=== PATIENT | male | born 1985 | race African-American/Black ===

== ENCOUNTER 2016-05-15 01:12 | Emergency (ER) | payer SELFPAY ==
[2016-05-15 01:21] VITALS: RESP 18
--- NOTE | 2016-05-15 02:04 | ED ---
Male Urogenital HPI - General Chief complaint: Urogenital Stated complaint: hernia Time Seen by Provider: 05/15/16 01:41 Source: patient, RN notes reviewed Mode of arrival: ambulatory Limitations: no limitations - History of Present Illness Initial comments: Patient is a 31-year-old male presenting to the with a chief complaint of right testicular pain for the past 3-4 weeks. He states that he lifts heavy things during his job. states he is concerned for possible hernia. He denies any dysuria or hematuria or urethral discharge. He denies any sexually transmitted infections. Patient denies any recent trauma that could cause injury. - Related Data Home Medications Medication Instructions Recorded Confirmed Albuterol Inhaler [Ventolin Hfa 1 - 2 puff INHALATION Q6HR PRN 05/15/16 05/15/16 Inhaler] Previous Rx's Medication Instructions Recorded Ciprofloxacin HCl [Cipro] 500 mg PO Q12HR #10 tablet 05/15/16 Allergies Allergy/AdvReac Type Severity Reaction Status Date / Time No Known Allergies Allergy Verified 05/15/16 01:21 Review of Systems ROS Statement: Those systems with pertinent positive or pertinent negative responses have been documented in the HPI. ROS Other: All systems not noted in ROS Statement are negative. Past Medical History Past Medical History: Asthma History of Any Multi-Drug Resistant Organisms: None Reported Past Surgical History: No Surgical Hx Reported Past Psychological History: No Psychological Hx Reported Smoking Status: Current every day smoker Past Alcohol Use History: Occasional Past Drug Use History: None Reported, Marijuana General Exam - General Exam Comments Initial Comments: Patient is a 31-year-old. Patient does not appear to be in any acute distress. Limitations: no limitations General appearance: alert, in no apparent distress Head exam: Present: atraumatic, normocephalic, normal inspection Eye exam: Present: normal appearance, PERRL, EOMI. Absent: scleral icterus, conjunctival injection, periorbital swelling ENT exam: Present: normal exam, mucous membranes moist Neck exam: Present: normal inspection. Absent: tenderness, meningismus, lymphadenopathy Respiratory exam: Present: normal lung sounds bilaterally. Absent: respiratory distress, wheezes, rales, rhonchi, stridor Cardiovascular Exam: Present: regular rate, normal rhythm, normal heart sounds. Absent: systolic murmur, diastolic murmur, rubs, gallop, clicks GI/Abdominal exam: Present: soft, normal bowel sounds. Absent: distended, tenderness, guarding, rebound, rigid exam: Present: normal inspection, testicular tenderness (Patient has right- sided testicular tenderness.), circumcision. Absent: urethral discharge, scrotal swelling, vertical testicular lie Extremities exam: Present: normal inspection, full ROM, normal capillary refill. Absent: tenderness, pedal edema, joint swelling, calf tenderness Back exam: Present: normal inspection Neurological exam: Present: alert, oriented X3, CN II-XII intact Psychiatric exam: Present: normal affect, normal mood Skin exam: Present: warm, dry, intact, normal color. Absent: rash Course Vital Signs 05/15/16 05/15/16 01:17 03:57 Temperature 97.3 F L 97 F L Pulse Rate 76 89 Respiratory 18 18 Rate Blood Pressure 133/86 133/76 O2 Sat by Pulse 100 97 Oximetry Medical Decision Making - Medical Decision Making Patient is a 31 year old male with 3-4 weeks of testicular pain. Patient denies possibility or risk of STI, and partner denies STI. Patient reports he has been faithfull with this partner for many years. Patient will be discharged with Cipro Rx for epididymitis. Again patient denies trauma over the area, however UA was negative for any infection. Patient advised to follwo up with PCP and return parameters discussed. - Lab Data Lab Results 05/15/16 Range/Units 02:58 Urine Color Yellow Urine Appearance Clear (Clear) Urine pH 6.0 (5.0-8.0) Ur Specific [place] 1.020 (1.001-1.035) Urine Protein Negative (Negative) Urine Glucose (UA) Negative (Negative) Urine Ketones Negative (Negative) Urine Blood Negative (Negative) Urine Nitrate Negative (Negative) Urine Bilirubin Negative (Negative) Urine Urobilinogen <2.0 (<2.0) mg/dL Ur Leukocyte Esterase Negative (Negative) - Radiology Data Radiology results: report reviewed scrotal US shows increased vascularity to right epididymis correlating to epididymitis. Disposition Clinical Impression: Epididymitis Disposition: HOME SELF-CARE Condition: Good Instructions: Epididymitis (ED) Additional Instructions: Patient instructed to remain hydrated. Use scrotal elevation. Motrin or Tylenol for pain. Follow-up with a primary care provider. Prescriptions: Ciprofloxacin HCl [Cipro] 500 mg PO Q12HR #10 tablet Referrals: Eloise Canales MD [REFERRING] - 1-2 days Time of Disposition: 03:25
--- NOTE | 2016-05-15 02:39 | US ---
EXAMINATION TYPE: US scrotum with doppler. Grayscale and color Doppler Duplex imaging performed of t he scrotum. DATE OF EXAM: 05/15/2016 2:14 AM COMPARISON: none CLINICAL HISTORY: Rt pain x 1 month, pt does a lot of lifting objects. EXAM MEASUREMENTS: TESTICLES: Right Testicle: 3.7 x 3.3 x 2.1 cm Left Testicle: 4.4 x 3.5 x 2.4 cm EPIDIDYMIS HEAD: Right Epididymis: 1.0 x 1.1 x 0.8 cm Left Epididymis: 1.0 x 1.0 x0.8 cm Doppler performed to assess for testicular vascularity; good bilateral color flow and waveforms are s een. There is no evidence of testicular torsion. Presence of hydroceles: no Presence of varicoceles: left TECHNOLOGIST IMPRESSION: Area of lump scanned, vascular tubular lesion seen inf/med to teste= 1.8 x 2.9 x 1.0 cm IMPRESSION: No evidence of testicular torsion or mass. No free fluid. There is a prominent right epid idymis with vascularity that is suggestive of epididymitis.
[2016-05-15 03:13] LABS: Appearance,Urine Clear (Clear); Bilirubin,Urine Negative (Negative); Glucose,Urine (UA) Negative (Negative); Ketones,Urine Negative (Negative); Leukocyte Esterase,Urine Negative (Negative); Nitrite,Urine Negative (Negative); Protein,Urine Negative (Negative); UA Billing (MACRO vs. MICRO) CHEM; Urobilinogen,Urine <2.0 mg/dL (<2.0)
[2016-05-15 03:57] VITALS: BP 133/76; PULSE 89; TEMP 97
== END 2016-05-15 03:57 | disposition home or self-care (01) ==
LOC: EC 01:12
DX: N45.1 Epididymitis (principal); F17.200 Nicotine dependence, unspecified, uncomplicated
CPT/HCPCS: 76870; 81003; 93975; 99284

== ENCOUNTER 2017-04-23 05:26 | Emergency (ER) | payer SELFPAY ==
[2017-04-23 05:36] VITALS: RESP 18
[2017-04-23] MEDS ORDERED: IBUPROFEN 400 MG TAB PO STA (05:45)
--- NOTE | 2017-04-23 06:26 | ED ---
Lower Extremity Injury HPI - General Chief Complaint: Extremity Injury, Lower Stated Complaint: toe injury Time Seen by Provider: 04/23/17 05:38 Source: patient Mode of arrival: ambulatory Limitations: no limitations - History of Present Illness Initial Comments: this patient is a 30-year-old man who presents to have his foot evaluated. The patient states that a coworker fell and landed on his foot. This occurred nearly 24 hours ago. Tonight he was trying to work and had aching pains of the toe, which were made worse when he was standing or when he was trying to walk on his foot. The patient indicates the right first toe, lateral aspect of the toe at the IP joint. MD Complaint: foot injury Onset/Timin -: hour(s) Injury: Toes: Right Type of Injury: blunt Place: work Severity: moderate Improves With: nothing Worsens With: movement, palpation Context: direct blow - Related Data Home Medications Medication Instructions Recorded Confirmed Albuterol Inhaler [Ventolin Hfa 1 - 2 puff INHALATION Q6HR PRN 05/15/16 05/15/16 Inhaler] Previous Rx's Medication Instructions Recorded Ciprofloxacin HCl [Cipro] 500 mg PO Q12HR #10 tablet 05/15/16 Ibuprofen [Motrin] 600 mg PO Q8HR PRN #20 tab 04/23/17 Allergies Allergy/AdvReac Type Severity Reaction Status Date / Time shellfish derived Allergy Anaphylaxis Verified 04/23/17 05:37 Review of Systems ROS Statement: Those systems with pertinent positive or pertinent negative responses have been documented in the HPI. ROS Other: All systems not noted in ROS Statement are negative. Constitutional: Denies: fever, chills Musculoskeletal: Reports: as per HPI, arthralgia Skin: Denies: rash Neurological: Denies: weakness, numbness Past Medical History Past Medical History: Asthma History of Any Multi-Drug Resistant Organisms: None Reported Past Surgical History: No Surgical Hx Reported Past Psychological History: No Psychological Hx Reported Smoking Status: Heavy tobacco smoker Past Alcohol Use History: Daily Past Drug Use History: None Reported, Marijuana General Exam Limitations: no limitations General appearance: alert, in no apparent distress Right Ankle exam: Present: normal inspection, full ROM. Absent: tenderness, swelling , abrasion, laceration, ecchymosis, deformity, crepitus, dislocation Foot/Toe exam: Present: tenderness (medial aspect of the right first toe at the IP joint), ecchymosis. Absent: deformity, crepitus, dislocation, erythema, puncture wound, foreign body, nail avulsion, subungual hematoma Neurovascular tendon exam: Present: no vascular compromise. Absent: motor deficit, sensory deficit Skin exam: Present: warm, dry, intact, normal color. Absent: rash Course Vital Signs 04/23/17 04/23/17 05:34 06:39 Temperature 97.0 F L Pulse Rate 93 86 Respiratory 18 18 Rate Blood Pressure 141/90 150/82 O2 Sat by Pulse 96 99 Oximetry Disposition Clinical Impression: Injury of toe on right foot Disposition: HOME SELF-CARE Condition: Good Instructions: Foot Contusion (ED) Prescriptions: Ibuprofen [Motrin] 600 mg PO Q8HR PRN #20 tab PRN Reason: Pain Referrals: Eolise Canales MD [Primary Care Provider] - 1-2 days
[2017-04-23 06:40] VITALS: BP 150/82; PULSE 86
--- NOTE | 2017-04-23 06:54 | XR ---
EXAM: XR Right Foot Complete, 3 or More Views CLINICAL HISTORY: Reason: Pain TECHNIQUE: Frontal, lateral and oblique views of the right foot. COMPARISON: No relevant prior studies available. FINDINGS: Bones/joints: Unremarkable. No acute fracture. No dislocation. Mild hallux valgus deformity Soft tissues: Unremarkable. No radiopaque foreign body. IMPRESSION: No acute bony abnormality.
[2017-04-23 07:07] VITALS: TEMP 96.8
== END 2017-04-23 07:06 | disposition home or self-care (01) ==
LOC: EC 05:26
DX: S99.921A Unspecified injury of right foot, initial encounter (principal); F17.200 Nicotine dependence, unspecified, uncomplicated; Z91.013 Allergy to seafood; W51.XXXA Accidental striking against or bumped into by another person, initial encounter
CPT/HCPCS: 99283

== ENCOUNTER 2017-09-15 06:06 | Emergency (ER) | payer OTHER ==
[2017-09-15 06:19] VITALS: RESP 18
[2017-09-15] MEDS ORDERED: MORPHINE SULFATE 4 MG/ML SYRINGE IVP STA (06:25)
[2017-09-15] MEDS ORDERED: SODIUM CHLORIDE 0.9% 1,000 ML IV STA (06:25)
[2017-09-15] MEDS ORDERED: SODIUM CHLORIDE 0.9% 500 ML IV STA (06:25)
[2017-09-15 06:31] LABS: Appearance,Urine Clear (Clear); Bilirubin,Urine Negative (Negative); Blood,Urine Negative (Negative); Color,Urine Light Yellow; Glucose,Urine (UA) Negative (Negative); Ketones,Urine Negative (Negative); Leukocyte Esterase,Urine Negative (Negative); Nitrite,Urine Negative (Negative); PH, Urine 5.5 (5.0-8.0); Protein,Urine Negative (Negative); Specific Gravity,Urine 1.004 (1.001-1.035); Urobilinogen,Urine <2.0 mg/dL (<2.0)
--- NOTE | 2017-09-15 06:31 | ED ---
General Adult HPI - General Source: patient, RN notes reviewed, old records reviewed Mode of arrival: ambulatory Limitations: no limitations <Valentin Barajas - Last Filed: 09/15/17 07:00> <Valentin Farley - Last Filed: 09/15/17 09:03> - General Chief complaint: Abdominal Pain Stated complaint: Flank Pain Time Seen by Provider: 09/15/17 06:09 - History of Present Illness Initial comments: 30-year-old male presents for evaluation of right upper quadrant pain. Patient' s pain is been present for the past 2 weeks. He states his had one or 2 episodes of vomiting daily. He does admit to drinking alcohol and urine daily. He believes his symptoms are related to his alcoholism. Denies any chest pain or shortness of breath. He does complain of subjective fever and chills. Denies any change in his bowels, no diarrhea. He also reports dark colored urine. Patient's only other past medical history is asthma which is well controlled. He is not currently on any medications. (Valentin Barajas) - Related Data Home Medications Medication Instructions Recorded Confirmed Albuterol Inhaler [Ventolin Hfa 1 - 2 puff INHALATION Q6HR PRN 05/15/16 09/15/17 Inhaler] Allergies Allergy/AdvReac Type Severity Reaction Status Date / Time shellfish derived Allergy Anaphylaxis Verified 09/15/17 06:19 Review of Systems ROS Other: All systems not noted in ROS Statement are negative. <Valentin Barajas - Last Filed: 09/15/17 07:00> ROS Other: All systems not noted in ROS Statement are negative. <Valentin Farley - Last Filed: 09/15/17 09:03> ROS Statement: Those systems with pertinent positive or pertinent negative responses have been documented in the HPI. Past Medical History Past Medical History: Asthma History of Any Multi-Drug Resistant Organisms: None Reported Past Surgical History: No Surgical Hx Reported Past Psychological History: No Psychological Hx Reported Smoking Status: Heavy tobacco smoker Past Alcohol Use History: Abuse, Daily Past Drug Use History: None Reported, Marijuana <Valentin Barajas - Last Filed: 09/15/17 07:00> General Exam Limitations: no limitations General appearance: alert, in no apparent distress Head exam: Present: atraumatic, normocephalic Eye exam: Present: normal appearance, PERRL ENT exam: Present: mucous membranes dry Neck exam: Present: normal inspection. Absent: tenderness, meningismus Respiratory exam: Present: normal lung sounds bilaterally. Absent: respiratory distress, wheezes Cardiovascular Exam: Present: regular rate, normal rhythm GI/Abdominal exam: Present: distended, tenderness (Generalized tenderness palpation, worse in the right upper quadrant), guarding (Voluntary guarding right upper quadrant). Absent: rebound, rigid Extremities exam: Present: normal inspection, normal capillary refill. Absent: pedal edema Neurological exam: Present: alert, oriented X3, CN II-XII intact. Absent: motor sensory deficit Psychiatric exam: Present: normal affect, normal mood Skin exam: Present: warm, dry, intact. Absent: cyanosis, diaphoretic <Valentin Barajas - Last Filed: 09/15/17 07:00> Course <Valentin Barajas - Last Filed: 09/15/17 07:00> <Valentin Farley - Last Filed: 09/15/17 09:03> Vital Signs 09/15/17 06:10 Temperature 97.9 F Pulse Rate 92 Respiratory 18 Rate Blood Pressure 161/107 O2 Sat by Pulse 100 Oximetry - Reevaluation(s) Reevaluation #1: 09/15/17 07:01 Patient's care is signed out to Dr. Farley at shift change awaiting laboratory studies and ultrasound. (Valentin Barajas) Medical Decision Making - Lab Data Result diagrams: 09/15/17 04:33 09/15/17 04:33 <Valentin Barajas - Last Filed: 09/15/17 07:00> - Lab Data Result diagrams: 09/15/17 04:33 09/15/17 04:33 - Radiology Data Radiology results: report reviewed (I did review the imaging and report no acute findings.), image reviewed <Valentin Farley - Last Filed: 09/15/17 09:03> - Medical Decision Making I did discuss findings with the patient's significant other and the patient will be discharged he will follow-up with his doctor. It was highly recommended he quit alcohol consumption. (Valentin Farley) - Lab Data Lab Results 09/15/17 09/15/17 09/15/17 Range/Units 04:33 04:33 04:33 WBC 6.6 (3.8-10.6) k/uL RBC 4.75 (4.30-5.90) m/uL Hgb 15.1 (13.0-17.5) gm/dL Hct 44.6 (39.0-53.0) % MCV 93.9 (80.0-100.0) fL MCH 31.7 (25.0-35.0) pg MCHC 33.8 (31.0-37.0) g/dL RDW 12.3 (11.5-15.5) % Plt Count 241 (150-450) k/uL Neutrophils % 58 % Lymphocytes % 28 % Monocytes % 9 % Eosinophils % 3 % Basophils % 0 % Neutrophils # 3.8 (1.3-7.7) k/uL Lymphocytes # 1.9 (1.0-4.8) k/uL Monocytes # 0.6 (0-1.0) k/uL Eosinophils # 0.2 (0-0.7) k/uL Basophils # 0.0 (0-0.2) k/uL PT (9.0-12.0) sec INR (<1.2) APTT (22.0-30.0) sec Sodium 148 H (137-145) mmol/L Potassium 3.8 (3.5-5.1) mmol/L Chloride 107 (98-107) mmol/L Carbon Dioxide 25 (22-30) mmol/L Anion Gap 16 mmol/L BUN 9 (9-20) mg/dL Creatinine 0.92 (0.66-1.25) mg/dL Est GFR (CKD-EPI)AfAm >90 (>60 ml/min/1.73 sqM) Est GFR (CKD-EPI)NonAf >90 (>60 ml/min/1.73 sqM) Glucose 106 H (74-99) mg/dL Plasma Lactic Acid [place] 1.5 (0.7-2.0) mmol/L Calcium 9.1 (8.4-10.2) mg/dL Total Bilirubin 0.4 (0.2-1.3) mg/dL AST 126 H (17-59) U/L ALT 123 H (21-72) U/L Alkaline Phosphatase 79 (38-126) U/L Total Protein 7.6 (6.3-8.2) g/dL Albumin 4.3 (3.5-5.0) g/dL Amylase 72 (30-110) U/L Lipase 205 (23-300) U/L Urine Color Urine Appearance (Clear) Urine pH (5.0-8.0) Ur Specific [place] (1.001-1.035) Urine Protein (Negative) Urine Glucose (UA) (Negative) Urine Ketones (Negative) Urine Blood (Negative) Urine Nitrite (Negative) Urine Bilirubin (Negative) Urine Urobilinogen (<2.0) mg/dL Ur Leukocyte Esterase (Negative) 09/15/17 09/15/17 Range/Units 04:33 06:20 WBC (3.8-10.6) k/uL RBC (4.30-5.90) m/uL Hgb (13.0-17.5) gm/dL Hct (39.0-53.0) % MCV (80.0-100.0) fL MCH (25.0-35.0) pg MCHC (31.0-37.0) g/dL RDW (11.5-15.5) % Plt Count (150-450) k/uL Neutrophils % % Lymphocytes % % Monocytes % % Eosinophils % % Basophils % % Neutrophils # (1.3-7.7) k/uL Lymphocytes # (1.0-4.8) k/uL Monocytes # (0-1.0) k/uL Eosinophils # (0-0.7) k/uL Basophils # (0-0.2) k/uL PT 10.5 (9.0-12.0) sec INR 1.1 (<1.2) APTT 24.4 (22.0-30.0) sec Sodium (137-145) mmol/L Potassium (3.5-5.1) mmol/L Chloride (98-107) mmol/L Carbon Dioxide (22-30) mmol/L Anion Gap mmol/L BUN (9-20) mg/dL Creatinine (0.66-1.25) mg/dL Est GFR (CKD-EPI)AfAm (>60 ml/min/1.73 sqM) Est GFR (CKD-EPI)NonAf (>60 ml/min/1.73 sqM) Glucose (74-99) mg/dL Plasma Lactic Acid [place] (0.7-2.0) mmol/L Calcium (8.4-10.2) mg/dL Total Bilirubin (0.2-1.3) mg/dL AST (17-59) U/L ALT (21-72) U/L Alkaline Phosphatase (38-126) U/L Total Protein (6.3-8.2) g/dL Albumin (3.5-5.0) g/dL Amylase (30-110) U/L Lipase (23-300) U/L Urine Color Light Yellow Urine Appearance Clear (Clear) Urine pH 5.5 (5.0-8.0) Ur Specific [place] 1.004 (1.001-1.035) Urine Protein Negative (Negative) Urine Glucose (UA) Negative (Negative) Urine Ketones Negative (Negative) Urine Blood Negative (Negative) Urine Nitrite Negative (Negative) Urine Bilirubin Negative (Negative) Urine Urobilinogen <2.0 (<2.0) mg/dL Ur Leukocyte Esterase Negative (Negative) Disposition <Valentin Barajas - Last Filed: 09/15/17 07:00> Is patient prescribed a controlled substance at d/c from ED?: No <Valentin Farley - Last Filed: 09/15/17 09:03> Clinical Impression: Alcoholic hepatitis, Alcoholism Disposition: HOME SELF-CARE Condition: Good Instructions: Alcoholic Hepatitis (ED), Alcohol Dependence (ED), Alcohol Use Disorder (ED) Additional Instructions: Avoid Tylenol use Referrals: Eloise Canales MD [Primary Care Provider] - 1-2 days
[2017-09-15 06:38] LABS: Basophils % (A) 0 %; Eosinophils # (A) 0.2 k/uL (0-0.7); Eosinophils % (A) 3 %; HCT 44.6 % (39.0-53.0); HGB 15.1 gm/dL (13.0-17.5); Lymphocytes # (A) 1.9 k/uL (1.0-4.8); Lymphocytes % (A) 28 %; MCH 31.7 pg (25.0-35.0); MCHC 33.8 g/dL (31.0-37.0); MCV 93.9 fL (80.0-100.0); Monocytes # (A) 0.6 k/uL (0-1.0); Monocytes % (A) 9 %; Neutrophils # (A) 3.8 k/uL (1.3-7.7); Neutrophils % (A) 58 %; Platelet Count 241 k/uL (150-450); RBC 4.75 m/uL (4.30-5.90); RDW 12.3 % (11.5-15.5); WBC 6.6 k/uL (3.8-10.6)
[2017-09-15 06:48] LABS: INR 1.1 (<1.2); Partial Thromboplastin Time 24.4 sec (22.0-30.0); Prothrombin Time 10.5 sec (9.0-12.0)
[2017-09-15 06:51] LABS: ALT 123 U/L (21-72); AST 126 U/L (17-59); Albumin 4.3 g/dL (3.5-5.0); Alkaline Phosphatase 79 U/L (38-126); Amylase 72 U/L (30-110); Anion Gap 16 mmol/L; Blood Urea Nitrogen 9 mg/dL (9-20); Calcium 9.1 mg/dL (8.4-10.2); Carbon Dioxide 25 mmol/L (22-30); Chloride 107 mmol/L (98-107); Glucose 106 mg/dL (74-99); Lipase 205 U/L (23-300); Potassium 3.8 mmol/L (3.5-5.1); Sodium 148 mmol/L (137-145); Total Bilirubin 0.4 mg/dL (0.2-1.3); Total Protein 7.6 g/dL (6.3-8.2)
--- NOTE | 2017-09-15 07:30 | US ---
EXAMINATION TYPE: US gallbladder DATE OF EXAM: 09/15/2017 COMPARISON: NONE CLINICAL HISTORY: Right side Pain. Nausea. ETOH, elevated liver enzymes EXAM MEASUREMENTS: Liver Length: 14.6 cm Gallbladder Wall: 0.3 cm CBD: 0.3 cm Right Kidney: 11.6 x 4.0 x 4.8 cm Pancreas: Obscured by bowel gas, visualized portions show no abnormality Liver: Heterogeneous Gallbladder: Contracted, no obvious stones visualized Evidence for sonographic Santiago's sign: Yes CBD: wnl as visualized, distal portion obscured by bowel gas Right Kidney: No hydronephrosis or masses seen The pancreas is poorly visualized. The liver is normal in size without biliary dilatation. The gallbladder is contracted. No definite stones are seen. The gallbladder wall measures 3 mm. The d istal common hepatic duct measures 3 mm. The right kidney appears normal. IMPRESSION: NORMAL RIGHT UPPER QUADRANT ULTRASOUND.
[2017-09-15 09:09] VITALS: BP 135/77; PULSE 98; TEMP 97.1
== END 2017-09-15 09:09 | disposition home or self-care (01) ==
LOC: EC 06:06
DX: K70.10 Alcoholic hepatitis without ascites (principal); F10.20 Alcohol dependence, uncomplicated; J45.909 Unspecified asthma, uncomplicated; F17.200 Nicotine dependence, unspecified, uncomplicated; Z91.013 Allergy to seafood; Z53.29 Procedure and treatment not carried out because of patient's decision for other reasons
CPT/HCPCS: 36415; 76705; 80053; 81003; 82150; 83605; 83690; 85025; 85610; 85730; 96360; 99284